=== PATIENT | male | born 1930 | race Caucasian/White ===

== ENCOUNTER 2016-08-04 10:44 | Inpatient (IN) | payer OTHER, BC ==
[~2016-08-04] VITALS: Ht 182.9 cm; Wt 107.6 kg
[2016-08-04 11:33] LABS: EOSINOPHIL (%) 0 % (0-5); IMMATURE GRANULOCYTE (%) 0.3 % (0.0-0.7); LYMPHOCYTE COUNT 0.7 K/uL (1.0-2.8); MCH 31.3 PG (29.0-34.0); MCHC 33.7 G/DL (30.0-36.0); MCV 92.7 FL (86-99); MEAN PLAT.VOLUME 10.1 uM^3 (9.0-12.4); MONOCYTE (%) 6.5 % (3-12); MONOCYTE COUNT 0.8 K/uL (0-0.8); NEUTROPHIL (%) 87.4 % (45-76); PLATELET COUNT 170 K/uL (156-360); RBC DIS.WIDTH-CV 13.3 % (11.8-14.6); RED BLOOD COUNT 4.64 M/uL (4.00-5.50); WHITE BLOOD COUNT 11.5 K/uL (4.1-10.2)
[2016-08-04 11:42] LABS: CHLORIDE 99 mEq/L (99-109); POTASSIUM 3.5 mEq/L (3.7-5.4); SODIUM 140 mEq/L (136-147)
[2016-08-04 11:43] LABS: INTER. NORMALIZED RATIO 1.1; PROTHROMBIN TIME 11.4 (9.2-11.2); PTT 29.3 (25-32)
[2016-08-04 11:44] LABS: GLUCOSE 188 mg/dL (70-99)
[2016-08-04 11:45] LABS: ANION GAP 15 MEQ/L (2-14)
[2016-08-04 11:48] LABS: GFR ESTIMATE (CALCULATED) > 59 mL/min/
[2016-08-04 11:49] LABS: UREA NITROGEN (BUN) 23 mg/dL (9-23)
[2016-08-04 11:54] LABS: TROP-I INTERPRETATION NEGATIVE; TROPONIN-I 0.15 ng/mL (0.0-0.30)
[2016-08-04] MEDS ORDERED: ELIQUIS5 MG PO (12:53)
[2016-08-04] MEDS ORDERED: CLONAZEPAM0.5 MG PO (12:53)
[2016-08-04] MEDS ORDERED: OXYBUTYNIN CHLO10 MG PO (12:53)
[2016-08-04] MEDS ORDERED: LISINOPRIL-HCT1 EAC3 PO (12:53)
[2016-08-04] MEDS ORDERED: PRAVASTATIN SOD80 MG PO (12:54)
[2016-08-04] MEDS ORDERED: AMLODIPINE BESY10 MG PO (12:54)
[2016-08-04 14:21] VITALS: BP 141/60
== END 2016-08-05 01:05 | DRG 66 ==
LOC: EME → EDBD 10:44 → EDOF 13:41 → 5EAST 13:41
PROVIDERS: Emergency Medicine
DX: I60.9 Nontraumatic subarachnoid hemorrhage, unspecified (principal); Z51.5 Encounter for palliative care; Z66 Do not resuscitate; I48.91 Unspecified atrial fibrillation; I25.10 Atherosclerotic heart disease of native coronary artery without angina pectoris; I10 Essential (primary) hypertension; K21.9 Gastro-esophageal reflux disease without esophagitis; M19.90 Unspecified osteoarthritis, unspecified site
CPT/HCPCS: 70450; 71010; 80048; 84484; 85025; 85610; 85730; 87040; 87801; 93005; 94640; 94799; 99281; 99284; J2270